=== PATIENT | male | born 1970 | race Caucasian/White ===

== ENCOUNTER 2020-01-13 05:52 | Observation (INO) ==
--- NOTE | 2020-01-01 15:40 | PAT Medication Instructions ---
Medication Instructions Date of Service January 01, 2020 Home Medications atorvastatin 20 mg tablet 20 mg PO PM lisinopril 10 mg-hydrochlorothiazide 12.5 mg tablet 1 tab PO PM ibuprofen 400 mg PO Q8H PRN ASK your surgeon for instructions ibuprofen 400 mg PO Q8H PRN Take evening before surgery atorvastatin 20 mg tablet 20 mg PO PM lisinopril 10 mg-hydrochlorothiazide 12.5 mg tablet 1 tab PO PM Other Notes If you have any questions please call us at [phone] or [phone] or [phone] or [phone]
--- NOTE | 2020-01-02 12:10 | Anesthesiology Consultation ---
Date of Service January 02, 2020 Assessment & Plan (1) Encounter for pre-operative examination: COVID Status: As of 01/01 assessment, patient denies travel to endemic area, known exposure/sick contacts, or symptoms of COVID19. Patient instructed that they and their household members must follow strict social distancing guidelines, wear a mask in public and avoid travel/events/gatherings for 14 days prior to surgery. Preoperative COVID19 testing to be completed prior to surgery per surgeon's arrangements (pt reports 01/06) Patient made aware to self-isolate as much as possible between COVID testing and surgery. Chart Review Chart Review: Acceptable Risk for Surgery and Patient seen in Pre Admission Testing Teaching & Discussion Instructed NPO after midnight before surgery, except medications with 15 cc of water. Medication instructions provided according to the PAT guidelines. History Surgery Operation Date: 01/13/20 07:30 Proposed Procedures p Laparoscopic Robotic Assisted Radical Retropubic Prostatectomy Possible Open Pelvic Lymph Node Dissetion - Raoul Garza MD Height/Weight Height: 5 ft 8 in Weight: 68.7 kg Allergies Allergy/AdvReac Type Severity Reaction Status Date / Time No Known Allergies Allergy Verified 01/01/20 11:16 Medications Home Medications Medication Instructions Recorded Confirmed Last Taken atorvastatin 20 mg tablet 20 mg PO PM 02/25/19 01/01/20 Unknown lisinopril 10 1 tab PO PM 02/25/19 01/01/20 Unknown mg-hydrochlorothiazide 12.5 mg tablet ibuprofen 400 mg PO Q8H PRN 01/01/20 01/01/20 Unknown Past Medical History Medical History Elevated PSA Hyperlipidemia Hypertension Nephrolithiasis HX Prostate cancer DX SEP 2019 Exercise / Class Metabolic Activity II 4-5 Yardwork/Stairs/Walk up hill Past Family History Family History Grandfather (Maternal) Prostate cancer Mother Hypertension Stroke Dementia Sister No problems noted. Brother No problems noted. Father Leukemia Brother No problems noted. Past Surgical History Surgical History History of tooth extraction No history of previous surgery Past Anesthesia History No Hx of Anesthesia Complications and No Family Hx of Anesthesia Complications History of PONV No Hx of PONV and No Hx of Motion Sickness Social History Smoking Status: Never smoker Do You Dip or Chew Tobacco: No Hx Alcohol Use: No Hx Substance Use: No substance use type: does not use Review of Systems Pt denies any recent chest pain, shortness of breath, palpitations, cough, fever, URI, or uncontrolled acid reflux. Physical Exam Vital Signs BP: 133/82 P: 85bpm SPO2: 99% RA T: 98.1 F R: 16 ENMT Mouth: + dentures (upper) and + edentulous Thyromental Distance: < 3.5 Finger Breadths (3) Mallampati Class: I Neck neck extension not limited Respiratory normal respiratory effort, lungs clear to auscultation Cardiovascular RRR, no murmur, no edema Testing Laboratory Results 01/02/20 12:35 01/02/20 13:35 Urine Color Yellow 01/02/20 12:35 Urine Appearance Clear (Clear) 01/02/20 12:35 Urine pH 5.5 (4.5-7.5) 01/02/20 12:35 Ur Specific [place] 1.010 (1.000-1.030) 01/02/20 12:35 Urine Protein Negative (Negative) 01/02/20 12:35 Urine Glucose (UA) Negative (Negative) 01/02/20 12:35 Urine Ketones Negative (Negative) 01/02/20 12:35 Urine Nitrite Negative (Negative) 01/02/20 12:35 Ur Leukocyte Esterase Negative (Negative) 01/02/20 12:35 Blood Type O Positive 01/02/20 12:35 Antibody Screen NEGATIVE 01/02/20 12:35 01/02/20 12:35 Urine Culture - Final Urine,Clean Catch No growth - less than 1,000 colonies/mL. GFR 54.2. Electrocardiogram Date: 01/02/20 Findings: + NSR @ (82bpm) Chest X-Ray Date: 01/02/20 Findings: + NAD Scattered calcified granulomas.
--- NOTE | 2020-01-02 13:07 | XRay Report ---
TWO VIEW CHEST CLINICAL HISTORY: Preoperative examination. FINDINGS: PA and lateral chest radiographs are obtained. No prior studies are available for compariso n at the time of dictation. The cardiomediastinal silhouette is unremarkable. There are scattered ca lcified granulomas. No airspace consolidation or pleural effusion is identified. There is no pneumoth orax. The bony thorax appears intact. IMPRESSION: No active disease in the chest. ACT 112: Negative or not required by law. Electronically signed by: Jose Hawkins M.D. 01/02/2020 1:05 PM
[2020-01-02 13:46] LABS: Basophils # (auto) 0.01 K/uL (0-0.2); Basophils % (auto) 0.2 %; Eosinophils # (auto) 0.12 K/uL (0-0.5); Hematocrit (blood only) 37.2 % (42-52); Hemoglobin 12.9 g/dL (14.0-18.0); Immature Granulocytes # (auto) 0.01 K/uL (0.00-0.02); Immature Granulocytes % (auto) 0.2 %; Lymphocytes # (auto) 1.21 K/uL (1.2-3.4); Lymphocytes % (auto) 20.4 %; Mean Corpuscular Hemoglobin 30.4 pg (25-34); Mean Corpuscular Hgb Conc 34.7 g/dL (32-36); Mean Corpuscular Volume 87.5 fL (80-100); Mean Platelet Volume 10.8 fL (7.4-10.4); Monocytes # (auto) 0.34 K/uL (0.11-0.59); Monocytes % (auto) 5.7 %; Neutrophils # (auto) 4.24 K/uL (1.4-6.5); Neutrophils % (auto) 71.5 %; Platelet Count 176 K/uL (130-400); RDW Standard Deviation 41.7 fL (36.4-46.3); Red Blood Count 4.25 M/uL (4.7-6.1); White Blood Count 5.93 K/uL (4.8-10.8)
[2020-01-02 13:48] LABS: Appearance Urine Clear (Clear); Bilirubin Urine Negative (Negative); Blood Urine Negative (Negative); Color Urine Yellow; Glucose Urine UA Negative (Negative); Ketones Urine Negative (Negative); Leukocyte Esterase Urine Negative (Negative); Nitrite Urine Negative (Negative); Protein Urine Negative (Negative); Urobilinogen Urine Negative (Negative); pH Urine 5.5 (4.5-7.5)
[2020-01-02 14:05] LABS: BUN Creatinine Ratio 18.5 (10-20); Calcium 9.1 mg/dl (8.5-10.1); Creatinine Clr Calc Pharmacy 58.5 ml/min; Est GFR (African American) 62.8; Est GFR (Non-African American) 54.2; Potassium 4.2 mmol/L (3.5-5.1)
--- NOTE | 2020-01-02 18:21 | Electrocardiogram Report ---
Test Reason : Blood Pressure : / mmHG Vent. Rate : 082 BPM Atrial Rate : 082 BPM P-R Int : 150 ms QRS Dur : 086 ms QT Int : 380 ms P-R-T Axes : 079 077 081 degrees QTc Int : 443 ms Normal sinus rhythm Normal ECG No previous ECGs available Confirmed by Seun Guillory ([id number]) on 01/02/2020 6:20:58 PM Referred By: Raoul Garza Confirmed By:Norman Guillory
[2020-01-13] MEDS ORDERED: HEPARIN SOD 5,000 UNIT/0.5 ML VIAL SQ SCH (06:00)
[2020-01-13] MEDS ORDERED: LR 15ML/HR IV SCH (06:00)
[2020-01-13] MEDS ORDERED: MIDAZOLAM HCL 1 MG/ML 2ML VIAL ONE (06:46)
[2020-01-13] MEDS ORDERED: LIDOCAINE HCL 2% 2 ML VIAL/AMP(20MG/ML) INFIL ONE (06:46)
[2020-01-13] MEDS ORDERED: fentaNYL citrate 100 MCG/2 ML VIAL ONE (06:46)
[2020-01-13] MEDS ORDERED: ONDANSETRON INJ 2 MG/ML 2 ML VIAL ONE (06:46)
[2020-01-13] MEDS ORDERED: PROPOFOL IV EMULSION 10 MG/ML 20 ML VIAL IV ONE (06:46)
[2020-01-13] MEDS ORDERED: ROCURONIUM BROMIDE 10 MG/ML 5 ML VIAL IV ONE ×4 (06:46→10:09)
[2020-01-13] MEDS ORDERED: DEXAMETHASONE SOD INJ 4 MG/ML VIAL ONE (06:46)
[2020-01-13] MEDS ORDERED: BUPIVACAINE 0.5 % 5 MG/1 ML MPF 30ML VIAL ONE (07:28)
--- NOTE | 2020-01-13 07:36 | History & Physical Bridge Note ---
Date of Service January 13, 2020 History & Physical Bridge Note I have examined the patient, reviewed the History & Physical and in the interval since the performance of the History & Physical I have noted the following changes of clinical significance: no changes noted
[2020-01-13] MEDS ORDERED: ceFAZolin 2,000 MG/15 ML IV PUSH IV ONE (07:42)
[2020-01-13] MEDS ORDERED: BELLADONNA/OPIUM SUPP 60 MG SUPP PR ONE ×2 (08:16→09:16)
[2020-01-13] MEDS ORDERED: HYDROmorphone INJ 2 MG/ML SYR/VIAL ONE (08:36)
[2020-01-13] MEDS ORDERED: ATROPINE SULFATE 0.1 MG/ML 10ML SYR IV PRN (08:44)
[2020-01-13] MEDS ORDERED: ePHEDrine sulfate 50 MG/ML AMP IV PRN (08:44)
[2020-01-13] MEDS ORDERED: ONDANSETRON INJ 2 MG/ML 2 ML VIAL IV PRN ×2 (08:44→12:19)
[2020-01-13] MEDS ORDERED: HYDROmorphone INJ 1 MG/ML SYRINGE IV PRN (08:44)
[2020-01-13] MEDS ORDERED: fentaNYL citrate 100 MCG/2 ML VIAL IV PRN (08:44)
[2020-01-13] MEDS ORDERED: FLOSEAL HEMOSTATIC MATRIX 10ML TOP ONE (09:37)
[2020-01-13] MEDS ORDERED: NEOSTIGMINE METHYLSULFATE 5 MG/5 ML SYR ONE (10:22)
[2020-01-13] MEDS ORDERED: GLYCOPYRROLATE 0.2 MG/ML VIAL ONE (10:22)
--- NOTE | 2020-01-13 11:24 | Operative Report ---
PG Post Operative Report Pre & Post Diagnosis Operation Date: 01/13/20 07:30 Pre-Op Diagnosis: Prostate Cancer Post-Op Diagnosis: Prostate Cancer I identified the patient and participated in the time-out.: Yes Procedure Operation Date: 01/13/20 07:30 Actual Procedures p Laparoscopic Robotic Assisted Radical Retropubic Prostatectomy,Pelvic Lymph Node Dissetion - Raoul Garza MD Surgeon Seun Garza MD Public Relations Consultant Carin Sales; Lorie Meek Estimated Blood Loss 100 Findings Consistent with Post-Op Diagnosis Specimens 1. Periprostatic fat 2. Right pelvic lymph nodes 3. Left pelvic lymph nodes 4. Prostate and seminal vesicles Description of Procedure The patient was identified in the preoperative holding area, appropriate informed consents were reviewed and completed, and he was transported to the operating suite. Subcutaneous heparin was administered in the pre-operative holding area. Upon arrival in the operating suite, he received appropriate antibiotics and general anesthesia. He was positioned in dorsal lithotomy, a B&O suppository was inserted after digital rectal exam, and he was prepped and draped in standard fashion. A Thomas catheter was inserted in the sterile field. A Veress needle was passed per umbilicus with uniform insufflation of the abdomen to 15mmHg. He was placed in steep Trendelenburg position. A periumbilical incision was then made to accommodate a 12mm Visiport with 10mm 0degree laparoscope. Inspection of the abdomen was carried out, and there was no evidence of traumatic entry or injury secondary to the Veress needle. After confirming a clear anterior abdominal wall, ports were subsequently placed in standard robotic prostatectomy fashion w ithout incident. To begin the robotic portion of the case, the left lateral aspect of the sigmoid was mobilized off of the left pelvic side wall to allow the pouch of Gregorio to be appropriately visualized. I then made an incision in the pouch of Gregorio, overlying the seminal vesicles. Both SVs as well as the ampullae of the vasa were entirely dissected, with the vasa transected 3cm from the prostate. The medial umbilical ligaments were then controlled with bipolar electrocautery just inferior to the umbilicus. Following cauterization, they were divided utilizing monopolar cautery. A peritoneal incision was carried from this location to the medial aspect of the internal inguinal rings bilaterally with care to avoid opening through the ring. This incision was concluded when the vas deferens was reached. Dissection of the bladder and prostate off of the posterior aspect of the pubic arch was completed allowing full visualization of the prostate. The fat overlying the prostate was removed en bloc and passed off the table as a specimen labeled "periprostatic fat". The endopelvic fascia was cleared during this portion of the procedure, and subsequently opened - first on the right and then the left. The incision through the endopelvic fascia began near the prostate-bladder junction and was carried to the apex with extreme care to preserve all lateral levator musculature as well as the periurethral musculature and sphincter complex. I additionally preserved the puboprostatic ligaments. I then controlled the DVC with a 3-0 V-lock suture in overlapping/figure of 8 fashion. The lymph node dissection was then conducted. External iliac vessels were identified on the pelvic side wall. The packet of fat and lymphatic tissue that resides just under the iliac vein was elevated and off of the vein with a split and roll technique. The packet was dissected laterally to the circumflex vein and distally to the obturator nerve which was preserved. The proximal aspect of the packet was carried towards the bifurcation of the iliac vessels. A combination of monopolar and bipolar cautery were used to assist with control. After completing the dissection on both sides, the packets were collected and passed off of the table as specimens labeled "pelvic lymph nodes". My attention then returned to the prostate, with identification of the bladder neck aided by gentle traction on the Thomas catheter and lateral to medial pressure at the presumed level of the bladder neck with the robotic instruments. An anterior cystotomy was made, the Thomas balloon deflated and the catheter guided through the incision to allow anterior retraction. I attempted to preserve maximal bladder neck musculature as I circumferentially dissected around the bladder neck. After incision through the posterior aspect of the mucosa, the dissection was carried through detrusor muscle until the bilateral ampullae of the vasa were identified. The previously dissected vasa and SVs were brought through the incision and used to elevated the prostate anteriorly. A posterior plane behind the prostate was then developed - splitting Denonvilliers's fascia. This dissection was carried as far as possible towards the apex as well as far as possible laterally. An incision in the lateral prostatic fascia was then made bilaterally to facilitate control of the vascular pedicles and preservation of the nerve bundles. Of note, a more aggressive nerve sparing was performed on the left than the right secondary to the location of his cancer diagnosis. Vasculature running along the posterior/lateral aspect of the prostate was preserved as well as the tissue containing the nerves. The pedicles were then controlled with a series of Weck clips and judicious use of electrocautery. The apical attachments of the prostate were remaining at that stage. The DVC was divided after control with bipolar cautery over the prostate. Continuous inspection from anterior and lateral views allowed me to closely follow the apical contour of the prostate and maximally preserve urethral length and tissue. The prostate was entirely freed at that point, and collected in an EndoCatch bag before being moved out of the field of vision. Hemostasis was confirmed and anastomosis of the bladder and urethra was completed utilizing a double armed V- Lock stitch. A new Thomas catheter was inserted and the anastomosis tested with irrigation. There was no evidence of leak. A leticia style stitch was placed bilaterally to functionally marsupialize the area of the lymph node dissection. The robot was undocked, the specimen extracted through expansion of the nury- umbilical camera port. The fascia was closed with a series of 0-PDS figure of 8 stitches. The right physical laboratory assistant port was closed in two layers - with a figure of 8 0-Vicryl to reapproximate the fascia followed by 4-0 Monocryl to close the skin. Monocryl was used to close all other skin incisions. All wounds were dressed with Dermabond. Carin Sales and Lorie Meek assisted from incision to closure. The case was concluded and the patient taken to the PACU in stable condition. There were no complications I attest to the content of the Intraoperative Record and any orders documented therein. Any exceptions are noted below.
[2020-01-13 11:54] LABS: Basophils # (auto) 0.01 K/uL (0-0.2); Basophils % (auto) 0.1 %; Eosinophils # (auto) 0.01 K/uL (0-0.5); Eosinophils % (auto) 0.1 %; Hematocrit (blood only) 35.4 % (42-52); Hemoglobin 12.3 g/dL (14.0-18.0); Immature Granulocytes # (auto) 0.03 K/uL (0.00-0.02); Immature Granulocytes % (auto) 0.2 %; Lymphocytes # (auto) 0.73 K/uL (1.2-3.4); Mean Corpuscular Hemoglobin 30.9 pg (25-34); Mean Corpuscular Volume 88.9 fL (80-100); Mean Platelet Volume 10.7 fL (7.4-10.4); Monocytes # (auto) 0.09 K/uL (0.11-0.59); Monocytes % (auto) 0.7 %; Neutrophils # (auto) 11.24 K/uL (1.4-6.5); Neutrophils % (auto) 92.9 %; Platelet Count 210 K/uL (130-400); RDW Coefficient of Variation 13.1 % (11.5-14.5); RDW Standard Deviation 42.4 fL (36.4-46.3); Red Blood Count 3.98 M/uL (4.7-6.1); White Blood Count 12.11 K/uL (4.8-10.8)
--- NOTE | 2020-01-13 12:01 | Anesthesiology Progress Note ---
Date of Service January 13, 2020 Anesthesia Post Procedure Vital Signs Vital Signs: Temp Pulse Resp BP Pulse Ox 01/13/20 11:50 36.8 C 76 14 103/66 100 01/13/20 11:40 72 14 107/69 100 01/13/20 11:30 76 11 L 114/76 100 01/13/20 11:20 36.0 C L 88 14 122/73 100 01/13/20 06:13 36.9 C 76 18 125/87 100 Transfer of Care Handoff Completed per policy Notes Mental Status: alert / awake / arousable and participated in evaluation Patient Amnestic to Procedure: Yes Nausea / Vomiting: adequately controlled Pain: adequately controlled Airway Patency, RR, SpO2: stable & adequate BP & HR: stable & adequate Hydration State: stable & adequate Anesthetic Complications: no major complications apparent and Pt Satisfied with anesthetic care
[2020-01-13 12:12] LABS: Potassium 3.8 mmol/L (3.5-5.1)
[2020-01-13 12:13] LABS: BUN Creatinine Ratio 11.8 (10-20); Calcium 8.9 mg/dl (8.5-10.1); Creatinine Clr Calc Pharmacy 48.5 ml/min; Est GFR (African American) 53.3
[2020-01-13 12:14] LABS: Mean Corpuscular Hgb Conc 34.7 g/dL (32-36)
--- NOTE | 2020-01-13 12:15 | Anesthesiology Progress Note ---
Date of Service January 13, 2020 Anesthesia Post Procedure Vital Signs Vital Signs: Temp Pulse Resp BP Pulse Ox 01/13/20 12:00 36.8 C 78 13 107/67 96 01/13/20 11:50 36.8 C 76 14 103/66 100 01/13/20 11:40 72 14 107/69 100 01/13/20 11:30 76 11 L 114/76 100 01/13/20 11:20 36.0 C L 88 14 122/73 100 01/13/20 06:13 36.9 C 76 18 125/87 100 Transfer of Care Handoff Completed per policy Notes Mental Status: alert / awake / arousable and participated in evaluation Patient Amnestic to Procedure: Yes Nausea / Vomiting: adequately controlled Pain: adequately controlled Airway Patency, RR, SpO2: stable & adequate BP & HR: stable & adequate Hydration State: stable & adequate Anesthetic Complications: no major complications apparent and Pt Satisfied with anesthetic care
[2020-01-13] MEDS ORDERED: MoRPHine SULFATE 2 MG/ML CARP IV PRN ×2 (12:24)
[2020-01-13] MEDS: LACTATED RINGER'S 1,000 ML IV SCH ×2 (12:56→21:21)
[2020-01-13] MEDS: ACETAMINOPHEN 325 MG TAB PO PRN (13:53)
[2020-01-13] MEDS: ceFAZolin 2000MG 2,000 MG/15 ML SYR IV SCH (17:12)
[2020-01-13] MEDS: oxyCODONE HCL IR 5 MG TAB (IMMEDIATE RELEASE) PO PRN ×2 (17:12→21:21)
[2020-01-13] MEDS ORDERED: LISINOPRIL/HCTZ 10/12.5MG TAB PO SCH (21:00)
[2020-01-13] MEDS ORDERED: ATORVASTATIN 20 MG TAB PO SCH (21:00)
[2020-01-13] MEDS: HEPARIN SOD 5,000 UNIT/0.5 ML VIAL SQ SCH (21:13)
[2020-01-14] MEDS: oxyCODONE HCL IR 5 MG TAB (IMMEDIATE RELEASE) PO PRN ×4 (02:05→15:23)
[2020-01-14] MEDS: ceFAZolin 2000MG 2,000 MG/15 ML SYR IV SCH (02:05)
[2020-01-14 07:28] VITALS: O2SAT 98
[2020-01-14] MEDS: ACETAMINOPHEN 325 MG TAB PO PRN (07:37)
[2020-01-14] MEDS: LACTATED RINGER'S 1,000 ML IV SCH (07:37)
[2020-01-14 08:09] LABS: Eosinophils # (auto) 0.01 K/uL (0-0.5); Eosinophils % (auto) 0.1 %; Hematocrit (blood only) 32.5 % (42-52); Hemoglobin 11.1 g/dL (14.0-18.0); Immature Granulocytes # (auto) 0.03 K/uL (0.00-0.02); Immature Granulocytes % (auto) 0.2 %; Lymphocytes # (auto) 0.84 K/uL (1.2-3.4); Mean Corpuscular Hemoglobin 30.7 pg (25-34); Mean Corpuscular Hgb Conc 34.2 g/dL (32-36); Monocytes # (auto) 1.33 K/uL (0.11-0.59); Monocytes % (auto) 11.1 %; Neutrophils % (auto) 81.6 %; Platelet Count 168 K/uL (130-400); RDW Coefficient of Variation 13.5 % (11.5-14.5); RDW Standard Deviation 44.7 fL (36.4-46.3); Red Blood Count 3.61 M/uL (4.7-6.1); White Blood Count 12.01 K/uL (4.8-10.8)
--- NOTE | 2020-01-14 08:10 | Urology Progress Note ---
Date of Service January 14, 2020 Assessment & Plan (1) Prostate cancer: POD#1 s/p prostatectomy - doing well - ambulate - diet - possible d/c home later today Admission and Anticipated Discharge Date Admission Date: January 13, 2020 Subjective Doing well overall out of bed last night some discomfort - as expected no flatus yet, but no nausea Physical Exam Physical Exam: incisions appropriate - no bruising, drainage, etc urine clear Results & Data ([facility]) Vital Signs (Past 12 Hours) Vital Signs Temp Pulse Resp BP Pulse Ox 01/14/20 07:26 36.8 C 83 16 112/64 98 01/14/20 04:37 37.2 C 81 16 98/59 L 97 01/13/20 23:10 37.0 C 86 18 104/64 99 01/13/20 21:11 83 99/62 L 99 PG Care Time/CCT Total # of Minutes Spent Total Time Spent with Patient: Total time spent is greater than 50% in coordination of care (as documented) at patient's floor/unit and/or counseling patient: Coding Level of Care Code None Diagnoses Prostate cancer C61
[2020-01-14 08:33] LABS: BUN Creatinine Ratio 11.8 (10-20); Calcium 8.7 mg/dl (8.5-10.1); Creatinine Clr Calc Pharmacy 57.1 ml/min; Est GFR (African American) 64.9; Potassium 3.8 mmol/L (3.5-5.1)
[2020-01-14] MEDS: HEPARIN SOD 5,000 UNIT/0.5 ML VIAL SQ SCH (09:00)
[2020-01-14 14:59] VITALS: BP 109/69; PULSE 77; TEMP 98.2
--- NOTE | 2020-01-15 13:08 | Discharge Summary ---
Date of Service January 15, 2020 Admission HPI Per Admitting Provider admitted for prostatectomy Principal Diagnosis prostate cancer Discharge Data Allergies Allergy/AdvReac Type Severity Reaction Status Date / Time No Known Allergies Allergy Verified 01/13/20 06:11 Procedures Performed Operation Date: 01/13/20 07:30 Actual Procedures p Laparoscopic Robotic Assisted Radical Retropubic Prostatectomy,Pelvic Lymph Node Dissetion - Raoul Malave MD Hospital Course (1) Prostate cancer: Patient admitted for a robotic prostatectomy - details of the procedure as dictated previously in my operative report - in summary, he tolerated the procedure very well - he was in stable condition overnight with appropriate urine output and stable labs - he was subsequently discharged home with a gonzales catheter - he was in stable condition at the time of discharge Total Time Total Time Spent Total Time Spent (In Minutes): 15 Discharge Plan Discharge Items Patient Disposition: Home - Self-Care Reason For Visit: Prostate Cancer Discharge Diagnosis: Prostate Cancer Activity: Per Instructions section Lifting: No more than 25 pounds Bathing Comment: No tub baths or soaks. OK to shower 1 day after discharge. Sexual Activity: Wait until after follow-up appointment Exercise/Sports: Wait until after follow-up appointment Driving/Machine Use: Do not drive while taking narcotic pain medication. Non-emergency contact: Surgeon and Urologist Call non-emergency contact if: your pain is not controlled, you have a fever, your temperature is above 101, your wound has increased redness, your wound has increased drainage and your wound pain has increased Follow-up/Referrals: Raoul Malave MD [Physician] - (SPOKE WITH DR MALAVE'S [id number] WILL CALL PATIENT WITH F/U APPT) Nish Thompson MD [Primary Care Provider] - Diet: Regular Addtl Attending Provider Instructions: Please take all medications as prescribed and keep follow-ups as scheduled. Please call our office at [phone] with any questions, concerns or need to reschedule appointments for any reason. We are happy to assist you. While catheter is in place, please wash with warm soapy water and a fresh washcloth twice a day with mild bar soap (Dove, Dial, etc.). Your nursing visit appointment to have your catheter removed should already be made, if you have any question regarding this, please call our office. Complete antibiotics as prescribed, if indicated. It is okay to take AZO (available over the counter) as needed for a few days to relieve burning with urination. This may cause your urine or feces to turn an orangish-color. This is expected. The only exception is if you have been prescribed Pyridium (phenazopyridine), this is the same medication and should not take AZO be taken in addition to prescription version. Please do not drive, drink alcohol or operate machinery while taking prescription pain medication. We recommend continuing a stool softener (i.e. Colace) to prevent constipation/straining for at least two weeks after your procedure. Some blood is to be expected in your urine as you heal, you may even see recur rences of blood in your urine for up to 4-6 months after your procedure. Drink plenty of fluids, avoid sexual or strenuous exercise and do not lift >25 pounds until your follow-up. Call [facility] at [phone] promptly if you experience: Fever of 101F or greater Pain thats not controlled with medicine Trouble urinating or inability to urinate Dark, bloody urine for more than 12 hours Pending Studies at Discharge: Yes Studies:: Pathology Stand-Alone Forms: My [facility] Medications and DC Order Prescriptions: New docusate sodium [Colace] 100 mg capsule 100 mg PO BID Qty: 60 RF: 0 oxycodone-acetaminophen [Percocet] 5-325 mg tablet 1 tab PO Q8H PRN (Reason: pain) Qty: 14 RF: 0 ciprofloxacin HCl 500 mg tablet 500 mg PO BID 3 Days Qty: 6 RF: 0 Continued lisinopril-hydrochlorothiazide 10-12.5 mg tablet 1 tab PO PM RF: 0 atorvastatin 20 mg tablet 20 mg PO PM RF: 0 ibuprofen 400 mg Tablet 400 mg PO Q8H PRN (Reason: Headache) RF: 0 Discharge Orders: Discharge Order (Routine); Ordered 01/14/20 Ordered By: Carin Parish/Other Patient Handouts: Indwelling Urinary Catheter Dc, Discharge Instructions Caring for ... Admission Data Admit Date/Time: 01/13/20 11:32 Attending Provider: Raoul Malave Admit Provider: Raoul Malave Primary Care Provider: Nish Thompson Other Interventions: Discharge Summary Assessment (RN) Last Done: 01/14/20 14:24 Coding Level of Care Code D/C Day Management <30 mins Diagnoses Prostate cancer C61
== END 2020-01-14 15:58 | disposition home or self-care (01) ==
LOC: ASU 05:52 → INTOOBSV 11:32 → 3W 11:32